=== PATIENT | male | born 1955 | race Caucasian/White ===

== ENCOUNTER 2023-03-15 00:49 | Day surgery (SDC) | payer MEDICARE, OTHER, SELFPAY ==
[2023-02-12 13:53] VITALS: BMI 24.6
--- NOTE | 2023-03-12 10:11 | SUR.PREOP ---
Patient called regarding upcoming procedure. Pt updated on arrival date and time. All questions answered
[2023-03-15 10:04] VITALS: BP 169/79; PULSE 57; RESP 18; TEMP 36.5; O2SAT 100; BMI 24.4
[2023-03-15] MEDS: LACTATED RINGERS 1,000 ML 150 ML IV CONT (10:29)
--- NOTE | 2023-03-15 10:40 | WPDANESEPPF ---
Anes - Initial Pre Proc Eval Procedure: Operation Date: 03/15/23 11:30 Proposed Procedures p Colonoscopy - Quinn Ortiz MD Date/Time: 03/15/23 10:40 Surgeon: Quinn Ortiz MD Pre Op Diagnosis: hx of colon polyps Patient Data Age: 67 Gender: M Height: 1.78 m Weight: 77.3 kg Last Vital Signs Temp 97.7 F 03/15/23 10:04 Pulse 57 L 03/15/23 10:04 Resp 18 03/15/23 10:04 BP 169/79 H 03/15/23 10:04 Pulse Ox 100 03/15/23 10:04 O2 Del Method Room Air 03/15/23 10:04 Allergies Allergy/AdvReac Type Severity Reaction Status Date / Time No Known Allergies Allergy Verified 03/15/23 10:15 Home Medications Medication Instructions Recorded Confirmed Type amlodipine 2.5 mg tablet 2.5 mg PO DAILY 02/12/23 03/15/23 History aspirin 81 mg chewable tablet 81 mg PO DAILY 02/12/23 03/15/23 History coenzyme Q10 300 mg capsule (Co 300 mg PO DAILY 02/12/23 03/15/23 History Q-10) multivitamin with minerals-folic 1 tablet PO DAILY 02/12/23 03/15/23 History acid 0.4 mg tablet omega-3 fatty acids-fish oil 684 1 cap PO DAILY 02/12/23 03/15/23 History mg-1,200 mg capsule,delayed release ramipril 10 mg capsule 20 mg PO DAILY 02/12/23 03/15/23 History rosuvastatin 20 mg tablet 20 mg PO HS 02/12/23 03/15/23 History Patient hx anesthesia problems: none Family hx anesthesia problems: none Results Review: All pre-operative results and documents have been reviewed as part of the pre-operative evaluation. [facility] Past Medical History Medical History CAD (coronary artery disease) Hyperlipidemia Hypertension Family History Family History Father Hypertension Mother Heart disease Sibling Asthma Grandparent Hypertension Social History Social History Social History: Caffeine- None Smoking status: Never smoker Alcohol intake: current Drinks per week: 1 Alcohol use details: Wine Substance use: never Substance use type: does not use Lack of Transportation: No Lack of Food: Never True Current Housing: I Have Housing Concerned About Future Housing: No Difficulty Paying Gas/Electric Bills: No Difficulty Paying for Meds: No Currently Unemployed: No Education: Trade/Vocational Certificate Difficulty w/ Childcare or Family Care: No Living arrangements: alone Occupation/Education: retired Gender identity (if verbalized by the patient): Male Spiritual care concerns: No Agree to blood products: Yes Anes - Eval Final PreProcedure Day of Procedure 03/15/23 10:40 Patient weight: normal Heart: regular rate and rhythm Lungs: clear to auscultation Airway: Mallampati scale class II Neurological: alert and oriented Last oral intake: >/= 8 hours ASA classification: III Emergent: no Anesthetic plan: proceed Anesthesia type and monitoring: general GIVS and standard monitoring Results Review: All pre-operative results and documents have been reviewed as part of the pre-operative evaluation. Informed Consent: The patient's anesthetic plan and its attendant risks and benefits were discussed with the patient/family/POA. Questions were solicited and answers provided to the satisfaction of the patient/family/POA.
--- NOTE | 2023-03-15 10:45 | PM.HPGS ---
History of Present Illness History of Present Illness Consent: Risks, benefits, and alternatives have been discussed and questions answered. Patient agrees to proceed with procedure. Chief complaint: hx of colon polyps Narrative: Don Oconnell is a 67 year old male with last colonoscopy 5-6 years ago Review of Systems Constitutional: Constitutional: Denies headache(s) and Denies weakness Eyes: Eyes: Denies blurry vision ENT: Reports Normal hearing present, Denies headache(s) and Denies neck pain Cardiovascular: Cardiovascular: Denies chest pain and Denies dyspnea Respiratory: Respiratory: Denies dyspnea Gastrointestinal: Gastrointestinal: Reports no additional gastrointestinal complaints Genitourinary: Genitourinary: Denies dysuria Musculoskeletal: Musculoskeletal: Denies neck pain Integumentary/Breasts: Skin/Breast: Denies dry skin Neurologic: Reports Normal hearing present, Denies headache(s) and Denies weakness Psychiatric: Psychiatric: Denies anxiety Endocrine: Endocrine: Denies change in body appearance Hematologic/Lymphatic: Hematologic/Lymphatic: Denies easy bleeding Allergic/Immunologic: Allergic/Immunologic: Denies urticaria PMFSH Past Medical History Medical History (Updated 03/15/23 @ 10:45 by Quinn Ortiz MD) CAD (coronary artery disease) Colon cancer screening Hyperlipidemia Hypertension Family History Family History Father Hypertension Mother Heart disease Sibling Asthma Grandparent Hypertension Social History Social History Social History: Caffeine- None Smoking status: Never smoker Alcohol intake: current Drinks per week: 1 Alcohol use details: Wine Substance use: never Substance use type: does not use Lack of Transportation: No Lack of Food: Never True Current Housing: I Have Housing Concerned About Future Housing: No Difficulty Paying Gas/Electric Bills: No Difficulty Paying for Meds: No Currently Unemployed: No Education: Trade/Vocational Certificate Difficulty w/ Childcare or Family Care: No Living arrangements: alone Occupation/Education: retired Gender identity (if verbalized by the patient): Male Spiritual care concerns: No Agree to blood products: Yes Meds Home Medications and Allergies Home Medications Medication Instructions Recorded Confirmed Type amlodipine 2.5 mg tablet 2.5 mg PO DAILY 02/12/23 03/15/23 History aspirin 81 mg chewable tablet 81 mg PO DAILY 02/12/23 03/15/23 History coenzyme Q10 300 mg capsule (Co 300 mg PO DAILY 02/12/23 03/15/23 History Q-10) multivitamin with minerals-folic 1 tablet PO DAILY 02/12/23 03/15/23 History acid 0.4 mg tablet omega-3 fatty acids-fish oil 684 1 cap PO DAILY 02/12/23 03/15/23 History mg-1,200 mg capsule,delayed release ramipril 10 mg capsule 20 mg PO DAILY 02/12/23 03/15/23 History rosuvastatin 20 mg tablet 20 mg PO HS 02/12/23 03/15/23 History Allergies Allergy/AdvReac Type Severity Reaction Status Date / Time No Known Allergies Allergy Verified 03/15/23 10:15 Vital Signs Vital Signs - 24 hr 03/15/23 10:04 Temperature 97.7 F Pulse Rate 57 L Respiratory Rate 18 Blood Pressure 169/79 H Pulse Oximetry 100 Oxygen Delivery Room Air Exam Const: General: comfortable and no acute distress HENMT: Face/Nose/Sinus: Normal nares present Eyes: General: appearance normal, both eyes and all related structures Neck: Neck: no JVD Resp: Auscultation: clear to auscultation bilaterally Cardio: Rate: regular rate Rhythm: regular rhythm GI: Inspection: non-distended GI Palp: Yes Soft to palpation Skin: General skin exam: normal color Neuro: General: gait normal Speech: normal speech Extrem: General: normal to inspection Psych: Mental Status: mental status grossly normal Assessment and Plan A
[2023-03-15 11:02] VITALS: BP 100/67; PULSE 62; RESP 16; O2SAT 97
[2023-03-15 11:12] VITALS: BP 107/71; PULSE 64; RESP 18; O2SAT 98
[2023-03-15 11:22] VITALS: BP 119/71; PULSE 62; RESP 18; O2SAT 99
== END 2023-03-15 11:31 | disposition home or self-care (01) ==
PROVIDERS: Visit Provider Internal Medicine Gastroenterology
PROC: 0DJD8ZZ Inspection of Lower Intestinal Tract, Via Natural or Artificial Opening Endoscopic (ICD-10-PCS; CPT 45378; principal; 2023-03-15 11:30)
DX: Z12.11 Encounter for screening for malignant neoplasm of colon (principal); K63.5 Polyp of colon; K64.8 Other hemorrhoids; I10 Essential (primary) hypertension; E78.5 Hyperlipidemia, unspecified; Z79.82 Long term (current) use of aspirin; Z86.79 Personal history of other diseases of the circulatory system; Z82.49 Family history of ischemic heart disease and other diseases of the circulatory system
CPT/HCPCS: 45380; 88305; J2704; J7120